=== PATIENT | female | born 1985 | race Caucasian/White ===

== ENCOUNTER → 2016-08-29 | Outpatient (CLI) | payer BC ==
[~2016-08-29] MED LIST: NORCO 5-325 TA1 EACH PO
== END ==
LOC: NM 07:20
DX: R10.11 Right upper quadrant pain (principal); R94.8 Abnormal results of function studies of other organs and systems
CPT/HCPCS: 78227; A9537; J2805

== ENCOUNTER → 2016-10-05 | Day surgery (SDC) | payer BC | END | disposition home or self-care (01) | LOC: OR 06:32 | PROVIDERS: Surgery | PROC: 0FT44ZZ Resection of Gallbladder, Percutaneous Endoscopic Approach (ICD-10-PCS; principal; 2016-10-05 07:30) | DX: K81.1 Chronic cholecystitis (principal); K21.9 Gastro-esophageal reflux disease without esophagitis; J45.909 Unspecified asthma, uncomplicated; Z87.891 Personal history of nicotine dependence | CPT/HCPCS: 84703; J0295; J1100; J1200; J2250; J2405; J2710; J3010; J7030; J7050; J7120 ==